=== PATIENT | female | born 1975 | race Caucasian/White ===

== ENCOUNTER 2021-02-11 10:44 | Emergency (ER) | payer MEDICAID, OTHER ==
[~2021-02-11] VITALS: Ht 144.8 cm; Wt 38.6 kg
--- NOTE | 2021-02-11 11:28 | NUR ---
PT C/O OF CHEST PAIN IN LOWER LEFT PART OF CHEST. STATES SHE WAS AT WORK YESTERDAY AROUND 11AM-12PM WHEN IT STARTED. REPORTS FEELING LIKE SHE PULLED A MUSCLE AND WENT TO URGENT CARE WHERE THEY DID A EKG AND DIDN'T LIKE WHAT THEY SAW SO THEY SENT HER TO ED. PT STATES SOB WHEN CHEST PAIN STARTED BUT IT HAS SBUSIDED. DENIES RADIATION, N/V, OR HEADACHE. ATTACHED TO MONITORS, BED IN LOW POSITION, CALL LIGHT WITHIN REACH. VSS.
--- NOTE | 2021-02-11 11:56 | NUR ---
PT RESTING IN BED ON HER PHONE.
[2021-02-11 12:03] LABS: BASOPHILS % (AUTO) 1 % (0-1); EOSINOPHILS % (AUTO) 2 % (1-7); LYMPHOCYTES % (AUTO) 38 % (22-44); MEAN CORPUSCULAR HEMOGLOBIN 33.3 pg (27.0-34.8); MEAN CORPUSCULAR HGB CONC 34.5 g/dL (32.4-35.8); MEAN PLATELET VOLUME 10.8 fL (7.4-10.4); MONOCYTES % (AUTO) 6 % (2-9); NEUTROPHILS % (AUTO) 53 % (42-75); PLATELET COUNT 154 x10^3/uL (130-400); RED BLOOD COUNT 4.16 x10^6/uL (3.82-5.3)
[2021-02-11 12:04] LABS: MD NO
[2021-02-11 12:11] LABS: ALBUMIN 4.2 g/dL (3.4-5.0); ANION GAP 6 mmol/L (5-15); CHLORIDE 110 mmol/L (98-107); CREATININE 0.72 mg/dL (0.55-1.02)
[2021-02-11 12:14] LABS: TROPONIN I < 0.015 ng/mL (0.000-0.045)
[2021-02-11 12:37] VITALS: BP 118/49
--- NOTE | 2021-02-11 13:15 | NUR ---
REPORT GIVEN TO KAYLA DE SANTIAGO
== END 2021-02-11 13:21 | disposition home or self-care (01) ==
LOC: ED 11:52
DX: S29.011A Strain of muscle and tendon of front wall of thorax, initial encounter (principal); F17.210 Nicotine dependence, cigarettes, uncomplicated; X58.XXXA Exposure to other specified factors, initial encounter; Y93.89 Activity, other specified; Y92.89 Other specified places as the place of occurrence of the external cause; Y99.8 Other external cause status
CPT/HCPCS: 36415; 71045; 80048; 82040; 84484; 85025; 93005; 99285